=== PATIENT | female | born 1960 | race Caucasian/White ===

== ENCOUNTER 2016-05-21 11:52 | Inpatient (IN) | payer MEDICARE, MEDICAID ==
[~2016-05-21] VITALS: Ht 157.5 cm; Wt 72.1 kg
[2016-05-21] MEDS ORDERED: ACETAMINOPHEN 325 MG TAB PO PRN (14:30)
[2016-05-21] MEDS ORDERED: DIPHENHYDRAMINE 50 MG/ML VIAL IM PRN (14:30)
[2016-05-21] MEDS ORDERED: DIPHENHYDRAMINE 50 MG CAP PO PRN (14:30)
[2016-05-21] MEDS ORDERED: HALOPERIDOL 5 MG/ML VIAL IM PRN (14:30)
[2016-05-21] MEDS ORDERED: HALOPERIDOL 5 MG TAB PO PRN (14:30)
[2016-05-21] MEDS ORDERED: LORAZEPAM 2 MG TAB PO PRN (14:30)
[2016-05-21] MEDS ORDERED: ALU/MAG/SIM 30 ML UDC PO PRN (14:30)
[2016-05-21] MEDS ORDERED: MAG HYDROX 30 ML UDC PO PRN (14:30)
[2016-05-21] MEDS ORDERED: LORAZEPAM 2 MG/ML VIAL IM PRN (14:30)
[2016-05-21] MEDS ORDERED: TRAZODONE 50 MG TAB PO PRN (14:30)
[2016-05-21 15:40] VITALS: BP_SYST 176; RESP 18; TEMP 98.3; BMI 29.1
[2016-05-21 15:41] VITALS: Ht 157.5 cm; Wt 72.1 kg
[2016-05-21] MEDS ORDERED: CHOLECALCIFEROL 1,000 UNITS TAB PO PRN (17:45)
[2016-05-21] MEDS: NICOTINE 21 MG/24 HR TRANSDERM SCH (18:00)
[2016-05-21] MEDS: OXYCODONE/APAP 7.5/325 TAB PO SCH ×2 (18:00→20:45)
[2016-05-21 18:30] VITALS: BP_SYST 180; RESP 18; TEMP 97.9
[2016-05-21 18:52] VITALS: BP_SYST 158
[2016-05-21] MEDS: DIAZEPAM 5 MG TAB PO SCH (19:30)
[2016-05-21 20:26] VITALS: BP_SYST 190
[2016-05-21 20:29] VITALS: BP_SYST 170
[2016-05-22] MEDS: Ibuprofen 400 MG TAB PO PRN (05:00)
[2016-05-22] MEDS: PANTOPRAZOLE 20 MG TAB PO SCH ×2 (06:46→06:48)
[2016-05-22 07:55] VITALS: BP_SYST 162; RESP 17; TEMP 97.3
[2016-05-22] MEDS: DIAZEPAM 5 MG TAB PO SCH (08:32)
[2016-05-22] MEDS: OXYCODONE/APAP 7.5/325 TAB PO SCH ×4 (08:32→20:24)
[2016-05-22] MEDS: NICOTINE 21 MG/24 HR TRANSDERM SCH (08:32)
[2016-05-22] MEDS: MULTIVITS/MINERALS (THERAGRAN M) TAB PO SCH ×2 (08:32→09:00)
[2016-05-22 09:18] VITALS: BP_SYST 152
[2016-05-22] MEDS: HCTZ 25 MG TAB PO SCH (10:59)
[2016-05-22] MEDS: FLUOXETINE 20 MG CAP PO SCH (14:47)
[2016-05-22] MEDS ORDERED: DIAZEPAM 5 MG TAB PO ONE (15:50)
[2016-05-22 19:03] VITALS: BP_SYST 147; RESP 18; TEMP 98.6
[2016-05-22] MEDS: ZOLPIDEM 5 MG TAB PO SCH (20:24)
[2016-05-23] MEDS: PANTOPRAZOLE 20 MG TAB PO SCH (06:38)
[2016-05-23 07:15] VITALS: BP_SYST 146; RESP 18; TEMP 97.6
[2016-05-23] MEDS: DIAZEPAM 5 MG TAB PO SCH ×4 (08:20→20:34)
[2016-05-23] MEDS: FLUOXETINE 20 MG CAP PO SCH (08:20)
[2016-05-23] MEDS: HCTZ 25 MG TAB PO SCH (08:20)
[2016-05-23] MEDS: OXYCODONE/APAP 7.5/325 TAB PO SCH ×2 (08:23→12:30)
[2016-05-23] MEDS: MULTIVITS/MINERALS (THERAGRAN M) TAB PO SCH (08:24)
[2016-05-23] MEDS: NICOTINE 21 MG/24 HR TRANSDERM SCH (09:30)
[2016-05-23] MEDS: ACETAMINOPHEN 500 MG TAB PO SCH ×2 (15:20→23:27)
[2016-05-23] MEDS: OXYCODONE 5 MG TAB PO SCH ×2 (17:29→20:34)
[2016-05-23 19:04] VITALS: BP_SYST 134; RESP 16; TEMP 97.2
[2016-05-23] MEDS: ZOLPIDEM 5 MG TAB PO SCH (20:33)
[2016-05-24] MEDS: Ibuprofen 400 MG TAB PO PRN (04:12)
[2016-05-24] MEDS: PANTOPRAZOLE 20 MG TAB PO SCH (06:01)
[2016-05-24] MEDS: MULTIVITS/MINERALS (THERAGRAN M) TAB PO SCH (07:27)
[2016-05-24] MEDS: ACETAMINOPHEN 500 MG TAB PO SCH ×3 (07:27→15:54)
[2016-05-24 07:44] VITALS: BP_SYST 123; RESP 18; TEMP 97.4
[2016-05-24] MEDS: KCL CR 10 MEQ CAP PO SCH (08:13)
[2016-05-24] MEDS: HCTZ 25 MG TAB PO SCH (08:13)
[2016-05-24] MEDS: OXYCODONE 5 MG TAB PO SCH ×4 (08:14→20:15)
[2016-05-24] MEDS: DIAZEPAM 5 MG TAB PO SCH ×3 (08:14→20:16)
[2016-05-24] MEDS: NICOTINE 21 MG/24 HR TRANSDERM SCH (08:14)
[2016-05-24] MEDS: FLUOXETINE 20 MG CAP PO SCH (08:14)
[2016-05-24] MEDS ORDERED: MISSING DOSE XX ONE (09:55)
[2016-05-24] MEDS: amLODIPine 5 MG TAB PO SCH (10:29)
[2016-05-24] MEDS ORDERED: METHOCARBAMOL 750 MG TAB PO PRN (11:35)
[2016-05-24] MEDS: BACLOFEN 10 MG TAB PO SCH ×3 (12:40→20:16)
[2016-05-24 19:00] VITALS: BP_SYST 113; RESP 16; TEMP 98
[2016-05-24] MEDS: ZOLPIDEM 5 MG TAB PO SCH (20:16)
[2016-05-25] MEDS: ACETAMINOPHEN 500 MG TAB PO SCH ×3 (05:45→15:24)
[2016-05-25] MEDS: PANTOPRAZOLE 20 MG TAB PO SCH (06:23)
[2016-05-25] MEDS: MULTIVITS/MINERALS (THERAGRAN M) TAB PO SCH (07:03)
[2016-05-25] MEDS: BACLOFEN 10 MG TAB PO SCH ×3 (08:34→21:12)
[2016-05-25] MEDS: amLODIPine 5 MG TAB PO SCH (08:34)
[2016-05-25] MEDS: KCL CR 10 MEQ CAP PO SCH (08:34)
[2016-05-25] MEDS: NICOTINE 21 MG/24 HR TRANSDERM SCH (08:35)
[2016-05-25] MEDS: OXYCODONE 5 MG TAB PO SCH ×4 (08:35→21:15)
[2016-05-25] MEDS: DIAZEPAM 5 MG TAB PO SCH ×3 (08:35→21:13)
[2016-05-25] MEDS: FLUOXETINE 20 MG CAP PO SCH (08:35)
[2016-05-25 08:49] VITALS: BP_SYST 157; RESP 20; TEMP 97.4
[2016-05-25] MEDS ORDERED: QUEtiapine 25 MG TAB PO PRN (10:05)
[2016-05-25] MEDS ORDERED: MISSING DOSE XX ONE ×2 (12:15→15:55)
[2016-05-25 14:38] VITALS: BP_SYST 129
[2016-05-25] MEDS ORDERED: QUETIAPINE XR 200 MG TAB PO SCH (17:00)
[2016-05-25 19:05] VITALS: BP_SYST 112; RESP 18; TEMP 97.3
[2016-05-25] MEDS ORDERED: METOPROLOL TART 25 MG TAB PO SCH (21:00)
[2016-05-25] MEDS: ZOLPIDEM 5 MG TAB PO SCH (21:12)
[2016-05-26] MEDS: PANTOPRAZOLE 20 MG TAB PO SCH (07:14)
[2016-05-26] MEDS: ACETAMINOPHEN 500 MG TAB PO SCH ×2 (07:34)
[2016-05-26 07:38] VITALS: BP_SYST 122; RESP 18; TEMP 97.4
[2016-05-26] MEDS: MULTIVITS/MINERALS (THERAGRAN M) TAB PO SCH (08:28)
[2016-05-26] MEDS: DIAZEPAM 5 MG TAB PO SCH (08:28)
[2016-05-26] MEDS: BACLOFEN 10 MG TAB PO SCH (08:28)
[2016-05-26] MEDS: OXYCODONE 5 MG TAB PO SCH (08:28)
[2016-05-26] MEDS: FLUOXETINE 20 MG CAP PO SCH (08:28)
[2016-05-26] MEDS: NICOTINE 21 MG/24 HR TRANSDERM SCH (08:29)
[2016-05-26] MEDS ORDERED: amLODIPine 5 MG TAB PO SCH (09:00)
[2016-05-26 10:28] VITALS: BP_SYST 132; RESP 18
== END 2016-05-26 12:08 | disposition home or self-care (01) | DRG 885 ==
LOC: PSY 15:24
PROVIDERS: ADMIT Psychiatry & Neurology Psychiatry; ATTEND Psychiatry & Neurology Psychiatry
DX: F33.9 Major depressive disorder, recurrent, unspecified (principal); C79.9 Secondary malignant neoplasm of unspecified site; C50.919 Malignant neoplasm of unspecified site of unspecified female breast; F43.10 Post-traumatic stress disorder, unspecified; Z72.0 Tobacco use; I10 Essential (primary) hypertension; K27.9 Peptic ulcer, site unspecified, unspecified as acute or chronic, without hemorrhage or perforation; M06.9 Rheumatoid arthritis, unspecified
CPT/HCPCS: 80048; 83735; 83880; 84439; 84443; 93005; 99231; 99232; 99253